=== PATIENT | female | born 1945 ===

== ENCOUNTER 2018-06-04 16:07 | Emergency (ER) | payer SELFPAY ==
[2018-06-04 16:22] VITALS: BP 132/72; PULSE 86; RESP 16; TEMP 98.1; O2SAT 99
[2018-06-04 17:53] LABS: BASO # 0.1 K/uL (0.0-0.2); BASO % 0.7 % (0.0-2.0); EOS # 0.2 K/uL (0.0-0.7); HEMOGLOBIN 13.2 g/dL (12.0-16.0); LYMPH # 2.4 K/uL (1.0-4.3); LYMPH % 32.8 % (20.0-40.0); MEAN CELL VOLUME 92.5 fl (81.0-99.0); MEAN CORPUSCULAR HEMOGLOBIN 31.1 pg (27.0-31.0); MEAN CORPUSCULAR HGB CONC 33.6 g/dL (33.0-37.0); MONO # 0.6 K/uL (0.0-0.8); MONO % 8.2 % (0.0-10.0); NEUT % 55.3 % (50.0-75.0); NRBC % 0.1 % (0.0-0.0); RBC 4.26 Mil/uL (3.80-5.20); RED CELL DISTRIBUTION WIDTH 14.4 % (11.5-14.5); WHITE BLOOD COUNT 7.3 K/uL (4.8-10.8)
[2018-06-04 18:06] LABS: ALB/GLOB RATIO 1.2 (1.0-2.1); ALBUMIN 4.6 g/dL (3.5-5.0); ALT/SGPT 28 U/L (9-52); AST/SGOT 24 U/L (14-36); BLOOD UREA NITROGEN 13 mg/dl (7-17); CALCIUM 10.2 mg/dL (8.4-10.2); GFR NON-AFRICAN AMERICAN > 60
--- NOTE | 2018-06-04 18:25 | ED PDOC ---
HPI: Neurologic - General Time Seen by Provider: 06/04/18 16:34 Chief Complaint (Nursing): Headache Chief Complaint (Provider): Right sided facial pain Source: patient - History of Present Illness Associated Symptoms: paresthesia. denies: confusion, fever/chills, loss of consciousness, nausea/vomiting, ringing in ears, slurred speech, trouble walking, vision changes, weakness Allergies/Adverse Reactions: Allergies aspirin Allergy (Verified 06/04/18 16:18) RASH Home Medications: Ambulatory Orders Gabapentin [Neurontin] 100 mg PO Q8 7 Days capsule 06/04/18 Additional Complaint(s): 72 y/o F with hx of trigeminal neuralgia, HTN and HL presents with Right sided facial and neck pain for the past 3 days. She states that she has had this pain in the past with her trigeminal neuralgia and that is a burning sensation that radiates from the Right side of her face to her ear and neck. She takes Pregabalin 150mg PO at bedtime and Mycobalamin vitamin 500mg PO daily. Pt is visiting from the [facility] and is planning on returning within the next week. She denies dental pain, unilateral weakness, visual changes, speech disturbance. Further denies fever, chills. Past Medical History Reviewed: Historical Data, Nursing Documentation, Vital Signs Vital Signs: Last Vital Signs Temp 98.1 F 06/04/18 16:18 Pulse 86 06/04/18 16:18 Resp 16 06/04/18 16:18 BP 132/72 06/04/18 16:18 Pulse Ox 99 06/04/18 16:18 - Medical History PMH: HTN, Hyperlipidemia Other PMH: trigeminal neuralgia - Family History Family History: States: Unknown Family Hx - Immunization History Hx Tetanus Toxoid Vaccination: No Hx Influenza Vaccination: No Hx Pneumococcal Vaccination: No - Home Medications Home Medications: Ambulatory Orders Medication Instructions Recorded Gabapentin [Neurontin] 100 mg PO Q8 7 Days capsule 06/04/18 - Allergies Allergies/Adverse Reactions: Allergies Allergy/AdvReac Type Severity Reaction Status Date / Time aspirin Allergy RASH Verified 06/04/18 16:18 Review of Systems Constitutional: Negative for: Fever Eyes: Negative for: Vision Change ENT: Negative for: Ear Pain, Nose Discharge, Throat Pain Musculoskeletal: Positive for: Neck Pain Neurological: Positive for: Headache. Negative for: Weakness, Numbness, Change in Speech, Altered Mental Status, Dizziness Psych: Negative for: Psychosis Physical Exam - Reviewed Nursing Documentation Reviewed: Yes Vital Signs Reviewed: Yes - Physical Exam Appears: Positive for: Uncomfortable Head Exam: Positive for: ATRAUMATIC Skin: Positive for: Normal Color Eye Exam: Positive for: Normal appearance, EOMI, PERRL ENT: Positive for: Normal ENT Inspection, TM Is/Are (normal B/L). 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 ). Negative for: Lethargic, Facial Droop - Laboratory Results Result Diagrams: 06/04/18 17:39 06/04/18 17:39 Lab Results: Total Bilirubin 0.2 mg/dl (0.2-1.3) 06/04/18 17:39 AST 24 U/L (14-36) 06/04/18 17:39 ALT 28 U/L (9-52) 06/04/18 17:39 Alkaline Phosphatase 130 U/L (38-126) H 06/04/18 17:39 Total Protein 8.4 G/DL (6.3-8.2) H 06/04/18 17:39 Albumin 4.6 g/dL (3.5-5.0) 06/04/18 17:39 Globulin 3.8 gm/dL (2.2-3.9) 06/04/18 17:39 Albumin/Globulin Ratio 1.2 (1.0-2.1) 06/04/18 17:39 - ECG O2 Sat by Pulse Oximetry: 99 Medical Decision Making Medical Decision Making: CBC, BMP Labs wnl Gabapentin 100mg PO TID x 7 days. Pt advised to follow up with her primary care doctor as soon as possible upon [place]. Further advised to take the 300mg at night if it causes her to be somnolent. Patient and family demonstrated understanding. Disposition - Clinical Impression Clinical Impression: Trigeminal neuralgia - Patient ED Disposition Is Patient to be Admitted: No - Disposition Referrals: [facility] [Outside] Disposition: Routine/Home Disposition Time: 18:45 Condition: STABLE Additional Instructions: Take Gabapentin for your trigeminal neuralgia pain 100mg every 8 hours. IF it makes you feel too sleepy, please take the 3 pills at night prior to sleep. Return to ER if you have weakness or trouble with your speech. Prescriptions: Gabapentin [Neurontin] 100 mg PO Q8 7 Days capsule Forms: [employer] (Maori) Print Language: IRISH
== END 2018-06-04 18:45 | disposition home or self-care (01) ==
LOC: H.ER 16:07
DX: G50.0 Trigeminal neuralgia (principal); I10 Essential (primary) hypertension; Z79.899 Other long term (current) drug therapy